=== PATIENT | female | born 1960 | race Caucasian/White ===

== ENCOUNTER 2016-06-16 06:06 | Day surgery (SDC) | payer BC ==
[~2016-06-16] VITALS: Ht 154.9 cm; Wt 66.8 kg
[~2016-06-16 06:06] MED LIST: FLONASE16 GM NASBOTH; GLUCOSAMINE-MS1 EAC1 PO; GOLYTELY4000 ML PO; HALFPRIN81 MG PO; LUTEIN6 M1 PO; MOBIC15 MG PO; MULTIPLE VITAM1 EACH PO
== END 2016-06-16 09:29 | disposition short-term general hospital (02) ==
LOC: SURGOP 06:06
PROC: 0RBG0ZZ Excision of Right Acromioclavicular Joint, Open Approach (ICD-10-PCS; principal; 2016-06-16)
DX: M67.411 Ganglion, right shoulder (principal); E66.9 Obesity, unspecified; Z87.891 Personal history of nicotine dependence; Z88.0 Allergy status to penicillin; Z88.1 Allergy status to other antibiotic agents; Z88.8 Allergy status to other drugs, medicaments and biological substances; Z79.82 Long term (current) use of aspirin; Z79.899 Other long term (current) drug therapy; Z98.51 Tubal ligation status; Z98.890 Other specified postprocedural states
CPT/HCPCS: J2250; J3010

== ENCOUNTER → 2016-06-30 | Outpatient (CLI) | payer BC | END | disposition short-term general hospital (02) | LOC: CLORTH 09:05 | DX: Z47.89 Encounter for other orthopedic aftercare (principal); M96.842 Postprocedural seroma of a musculoskeletal structure following a musculoskeletal system procedure; S40.011A Contusion of right shoulder, initial encounter ==

== ENCOUNTER → 2016-07-14 | Outpatient (CLI) | payer BC | END | disposition short-term general hospital (02) | LOC: CLORTH 10:42 | DX: Z47.89 Encounter for other orthopedic aftercare (principal); Z87.39 Personal history of other diseases of the musculoskeletal system and connective tissue ==

== ENCOUNTER 2016-08-11 06:51 | Day surgery (SDC) | payer BC | END 2016-08-11 09:55 | disposition short-term general hospital (02) | LOC: SURGOP 06:51 | PROC: 0R9J0ZZ Drainage of Right Shoulder Joint, Open Approach (ICD-10-PCS; principal; 2016-08-11) | DX: M25.811 Other specified joint disorders, right shoulder (principal); E66.9 Obesity, unspecified; G89.29 Other chronic pain; M19.90 Unspecified osteoarthritis, unspecified site; Z68.28 Body mass index [BMI] 28.0-28.9, adult; Z87.891 Personal history of nicotine dependence; Z88.0 Allergy status to penicillin; Z88.1 Allergy status to other antibiotic agents; Z88.8 Allergy status to other drugs, medicaments and biological substances; Z91.048 Other nonmedicinal substance allergy status; Z79.82 Long term (current) use of aspirin; Z79.899 Other long term (current) drug therapy; Z98.51 Tubal ligation status; Z98.890 Other specified postprocedural states | CPT/HCPCS: J0171; J0690; J2250; J3010 ==

== ENCOUNTER → 2016-08-25 | Outpatient (CLI) | payer BC | END | disposition short-term general hospital (02) | LOC: CLORTH 02:30 | DX: Z47.89 Encounter for other orthopedic aftercare (principal); Z87.39 Personal history of other diseases of the musculoskeletal system and connective tissue ==